=== PATIENT | female | born 1950 | race Caucasian/White ===

== ENCOUNTER → 2018-10-08 | Outpatient (CLI) | payer OTHER | LOC: RAD 08:20 | DX: J44.9 Chronic obstructive pulmonary disease, unspecified (principal) ==

== ENCOUNTER → 2019-10-21 | Outpatient (CLI) | payer OTHER | LOC: CAT 13:53 | PROVIDERS: ATTEND Internal Medicine | DX: Z12.2 Encounter for screening for malignant neoplasm of respiratory organs (principal); Z87.891 Personal history of nicotine dependence; I25.10 Atherosclerotic heart disease of native coronary artery without angina pectoris ==

== ENCOUNTER → 2020-07-13 | Outpatient (CLI) | payer OTHER ==
[~2020-07-13] MED LIST: CETIRIZINE HCL5 MG PO; CLOPIDOGREL75 MG PO; CRESTOR20 MG PO; DULERA 200 MCG/13 GM INH; FLONASE 0.05%50 MCG NARES; PREDNISONE 5 MG5 M1 PO; SINGULAIR 10 MG10 M1 PO; TOPROL XL25 MG PO; UNICOMPLEX M TA1 TA1 PO; VENTOLIN HFA INH8 GM INH
== END ==
LOC: SJCVCIMAG 06:56
PROVIDERS: ATTEND Podiatrist Foot & Ankle Surgery
DX: I70.201 Unspecified atherosclerosis of native arteries of extremities, right leg (principal); J44.9 Chronic obstructive pulmonary disease, unspecified; M79.673 Pain in unspecified foot; I67.1 Cerebral aneurysm, nonruptured; E78.00 Pure hypercholesterolemia, unspecified; I10 Essential (primary) hypertension; F17.210 Nicotine dependence, cigarettes, uncomplicated; Z98.890 Other specified postprocedural states; Z88.0 Allergy status to penicillin; Z88.8 Allergy status to other drugs, medicaments and biological substances; Z79.899 Other long term (current) drug therapy; Z82.49 Family history of ischemic heart disease and other diseases of the circulatory system

== ENCOUNTER 2020-07-14 11:15 | Inpatient (IN) | payer OTHER ==
[~2020-07-14] VITALS: Ht 162.6 cm; Wt 69.4 kg
[2020-07-14] VITALS (7 sets, daily range): BP systolic 153–169; BP diastolic 45–92
[2020-07-14 12:48] LABS: HEMATOCRIT 49.4 % (37.0-47.0); MCH 29.7 pg (26.0-34.0); MCHC 32.4 g/dL (28.0-37.0); MCV 91.5 fL (80.0-100.0); RBC 5.4 mil/uL (4.20-5.00); WBC 11.2 thou/uL (4.0-11.0)
[2020-07-14 12:53] LABS: CALCIUM 9.2 mg/dL (8.5-10.1); CREATININE 0.7 mg/dL (0.6-1.0); POTASSIUM 3.5 mmol/L (3.5-5.1)
[2020-07-14] MEDS ORDERED: CETIRIZINE HCL5 MG PO (13:52)
[2020-07-14] MEDS ORDERED: VENTOLIN HFA INH8 GM INH (13:52)
[2020-07-14] MEDS ORDERED: DULERA 200 MCG/13 GM INH (13:53)
[2020-07-14] MEDS ORDERED: FLONASE 0.05%50 MCG NARES (13:53)
[2020-07-14] MEDS ORDERED: TOPROL XL25 MG PO (13:54)
[2020-07-14] MEDS ORDERED: SINGULAIR 10 MG10 M1 PO (13:54)
[2020-07-14] MEDS ORDERED: UNICOMPLEX M TA1 TA1 PO (13:55)
[2020-07-14] MEDS ORDERED: PREDNISONE 5 MG5 M1 PO (13:55)
[2020-07-14] MEDS ORDERED: CRESTOR20 MG PO (13:57)
[2020-07-14] MEDS ORDERED: CLOPIDOGREL75 MG PO (13:57)
--- NOTE | 2020-07-14 18:55 | NUR ---
PT FROM OPERATING ROOM ORDERLY. RIGHT GROIN INCISION C/D/I. POST OP INSTRUCTIONS GIVEN TO PT. PT VERBERLISED UNDERSTANDING. VERY ANXIOUS. NEEDED NUMEROUS VERBAL PROMPT TO FOLLOW POST OP INSTRUCTIONS. PER OPERATING ROOM ORDERLY REPORT PT WAS TO BE ON BEDREST TILL 1930. DISCHARGE INSTRUCTIONS GIVEN TO PT AND THE . THEY BOTH VERBERLISED UNDERSTANDING.
== END 2020-07-14 19:15 | disposition home or self-care (01) | DRG 272 ==
LOC: CATH 11:15 → 2N 17:37
PROVIDERS: ADMIT Nuclear Medicine Nuclear Cardiology; ATTEND Nuclear Medicine Nuclear Cardiology
PROC: B41DYZZ Fluoroscopy of Aorta and Bilateral Lower Extremity Arteries using Other Contrast (ICD-10-PCS; principal; 2020-07-14)
PROC: B418YZZ Fluoroscopy of Bilateral Renal Arteries using Other Contrast (ICD-10-PCS; principal; 2020-07-14)
PROC: 04CK3ZZ Extirpation of Matter from Right Femoral Artery, Percutaneous Approach (ICD-10-PCS; principal; 2020-07-14)
PROC: 047J3DZ Dilation of Left External Iliac Artery with Intraluminal Device, Percutaneous Approach (ICD-10-PCS; principal; 2020-07-14)
PROC: 047K3DZ Dilation of Right Femoral Artery with Intraluminal Device, Percutaneous Approach (ICD-10-PCS; principal; 2020-07-14)
PROC: 047D3DZ Dilation of Left Common Iliac Artery with Intraluminal Device, Percutaneous Approach (ICD-10-PCS; principal; 2020-07-14)
PROC: 047H3DZ Dilation of Right External Iliac Artery with Intraluminal Device, Percutaneous Approach (ICD-10-PCS; principal; 2020-07-14)
PROC: 047C3DZ Dilation of Right Common Iliac Artery with Intraluminal Device, Percutaneous Approach (ICD-10-PCS; principal; 2020-07-14)
DX: I70.203 Unspecified atherosclerosis of native arteries of extremities, bilateral legs (principal); I10 Essential (primary) hypertension; I70.1 Atherosclerosis of renal artery; I25.10 Atherosclerotic heart disease of native coronary artery without angina pectoris; J44.9 Chronic obstructive pulmonary disease, unspecified
CPT/HCPCS: 10081

== ENCOUNTER → 2020-07-27 | Outpatient (CLI) | payer OTHER | LOC: HYPER 11:03 | PROVIDERS: ATTEND Emergency Medicine | DX: S90.511A Abrasion, right ankle, initial encounter (principal); S90.811A Abrasion, right foot, initial encounter; S90.921A Unspecified superficial injury of right foot, initial encounter; L97.512 Non-pressure chronic ulcer of other part of right foot with fat layer exposed; I73.89 Other specified peripheral vascular diseases; I10 Essential (primary) hypertension; J44.9 Chronic obstructive pulmonary disease, unspecified; K21.9 Gastro-esophageal reflux disease without esophagitis; Z96.698 Presence of other orthopedic joint implants; Z79.01 Long term (current) use of anticoagulants; Z87.891 Personal history of nicotine dependence; W01.0XXA Fall on same level from slipping, tripping and stumbling without subsequent striking against object, initial encounter; Y93.A3 Activity, aerobic and step exercise; Y92.89 Other specified places as the place of occurrence of the external cause; Y99.8 Other external cause status ==

== ENCOUNTER → 2020-08-10 | Outpatient (CLI) | payer OTHER | LOC: HYPER 13:13 | PROVIDERS: ATTEND Emergency Medicine | DX: S90.921D Unspecified superficial injury of right foot, subsequent encounter (principal); L97.512 Non-pressure chronic ulcer of other part of right foot with fat layer exposed; I73.89 Other specified peripheral vascular diseases; I10 Essential (primary) hypertension; J44.9 Chronic obstructive pulmonary disease, unspecified; K21.9 Gastro-esophageal reflux disease without esophagitis; Z96.698 Presence of other orthopedic joint implants; Z79.01 Long term (current) use of anticoagulants; Z87.891 Personal history of nicotine dependence; W01.0XXD Fall on same level from slipping, tripping and stumbling without subsequent striking against object, subsequent encounter ==

== ENCOUNTER → 2020-08-24 | Outpatient (CLI) | payer OTHER | LOC: HYPER 08:32 | PROVIDERS: ATTEND Emergency Medicine | DX: S90.921D Unspecified superficial injury of right foot, subsequent encounter (principal); L97.412 Non-pressure chronic ulcer of right heel and midfoot with fat layer exposed; L84 Corns and callosities; I73.89 Other specified peripheral vascular diseases; I10 Essential (primary) hypertension; J44.9 Chronic obstructive pulmonary disease, unspecified; K21.9 Gastro-esophageal reflux disease without esophagitis; Z96.698 Presence of other orthopedic joint implants; Z79.01 Long term (current) use of anticoagulants; Z87.891 Personal history of nicotine dependence; W01.0XXD Fall on same level from slipping, tripping and stumbling without subsequent striking against object, subsequent encounter ==